=== PATIENT | female | born 1975 | race Caucasian/White ===

== ENCOUNTER 2022-04-27 06:41 | Emergency (ER) | payer MEDICAID ==
[~2022-04-27] VITALS: Ht 170.2 cm; Wt 104.3 kg
[2022-04-27 06:47] VITALS: BP 130/83
--- NOTE | 2022-04-27 06:55 | NUR ---
PT TO 11
--- NOTE | 2022-04-27 07:10 | NUR ---
Patient being evaluated by physician at bedside.
[2022-04-27] MEDS ORDERED: ALBUTEROL 0.083% 2.5 MG/3 ML NEBU INH ONE (07:15)
[2022-04-27] MEDS ORDERED: predniSONE 20 MG TAB PO ONE (07:15)
--- NOTE | 2022-04-27 07:20 | NUR ---
Report recieved from GINO Lema for transfer of care.
--- NOTE | 2022-04-27 07:29 | NUR ---
Respiratory at bedside.
--- NOTE | 2022-04-27 07:30 | NUR ---
46 y/o female bib self c/o SOB since 299. Patient states she took inhaler at home without relief. Denies fever, pain or chills. Medical History: Asthma NKDA
[2022-04-27] MEDS ORDERED: ALBU0.0912 INH (07:46)
[2022-04-27] MEDS ORDERED: PRED20TA5 PO (07:46)
[2022-04-27] MEDS ORDERED: MUC600 PO (07:46)
[2022-04-27 08:24] VITALS: BP 125/74
--- NOTE | 2022-04-27 08:25 | NUR ---
Patient discharged with v/s stable. Written and verbal after care instructions ABOUT ASTHMA given and explained. Patient alert, oriented and verbalized understanding of instructions. Ambulatory with steady gait. All questions addressed prior to discharge. ID band removed. Patient advised to follow up with PMD. Rx of ALBUTEROL, ROBITUSSIN, PREDNISONE given. Patient educated on indication of medication including possible reaction and side effects. Opportunity to ask questions provided and answered.
== END 2022-04-27 08:25 | disposition home or self-care (01) ==
LOC: MED 06:41
DX: J45.901 Unspecified asthma with (acute) exacerbation (principal)
CPT/HCPCS: 94640; 99283; J7512; J7613